=== PATIENT | female | born 2000 ===

== ENCOUNTER 2024-04-09 11:31 | Emergency (ER) | payer MEDICAID ==
[~2024-04-09] VITALS: Ht 162.6 cm; Wt 100.0 kg
[2024-04-09 11:47] VITALS: O2SAT 100
[2024-04-09 11:52] VITALS: BP 157/94; TEMP 98.5; O2SAT 93
[2024-04-09 12:43] VITALS: PULSE 88; RESP 32
[2024-04-09] MEDS: IPRATROPIUM BROMIDE (0.02%) 0.5MG/2.5ML NEB HHN ONE ×2 (12:43→14:03)
[2024-04-09] MEDS: ALBUTEROL (0.5%) 2.5MG/0.5ML NEB HHN ONE ×2 (12:43→13:57)
[2024-04-09] MEDS: PREDNISONE 20MG TABLET PO ONE (13:37)
[2024-04-09 14:03] VITALS: PULSE 78; RESP 15
[2024-04-09] MEDS ORDERED: P20 MT (14:30)
[2024-04-09] MEDS ORDERED: ALBU18HF2 IH (14:30)
== END 2024-04-09 14:50 | disposition home or self-care (01) ==
LOC: ER 11:46
DX: J45.901 Unspecified asthma with (acute) exacerbation (principal)
CPT/HCPCS: 71045; 94640; 99284; J7512; Z7610 ×3; 94070; 94664; 98960